=== PATIENT | female | born 1940 | race Caucasian/White ===

== ENCOUNTER → 2017-03-02 | Outpatient (REF) ==
[~2017-03-02] MED LIST: ACETYL-L-CARNITINE PO; ALLEGRA60 MG PO; ALPHA LIPOIC A200 MG PO; ASPI81CT PO; ASPIRIN 32325 MG/TAB PO; ASPIRIN E.C. 8181 MG PO; B COMPLEX; CARDI-OMEGA1000 MG PO; CENTRUM SILVER1 TA1 PO; CLOPIDOGREL PO; COENZYME Q-1010 MG PO; FISH OIL CONC1000 MG PO; FLAXSEED OIL1 CAP PO; FOLIC ACID 40400 MCG PO; GLUCOSAMINE PO; KLONOPIN 0.5MG0.5 MG PO; LEXAPRO10 MG PO; NIACIN500 MG PO; NORVASC 5MG5 MG/TAB PO; NORVASC2.5 MG PO; OMEPRAZOLE DR20 MG PO; RED RICE YEAST PO; RITE AID KRILL500 MG PO; VYTORIN PO; [UNRECOGNIZED DRUG - OTHER]
[2017-03-02 21:58] LABS: THYROID STIMULATING HORMONE 1.04 uIU/mL (0.465-4.680)
== END ==
LOC: ZLAB.WCH 19:25
PROVIDERS: Internal Medicine
DX: Z01.89 Encounter for other specified special examinations (principal)

== ENCOUNTER → 2017-04-14 | Outpatient (CLI) | payer MEDICARE, BC | LOC: MC.RAD 14:20 | DX: Z12.31 Encounter for screening mammogram for malignant neoplasm of breast (principal) ==

== ENCOUNTER → 2017-05-20 | Outpatient (REF) | LOC: ZLAB.WCH 08:45 | DX: Z01.89 Encounter for other specified special examinations (principal) ==

== ENCOUNTER → 2018-03-05 | Outpatient (REF) ==
[2018-03-05 09:41] LABS: THYROID STIMULATING HORMONE 0.934 uIU/mL (0.465-4.680)
== END ==
LOC: ZLAB.WCH 08:41
PROVIDERS: Internal Medicine
DX: Z01.89 Encounter for other specified special examinations (principal)

== ENCOUNTER → 2018-10-08 | Outpatient (CLI) | payer MEDICARE, BC ==
[2018-10-08 10:26] LABS: CHOLESTEROL RISK RATIO 2.6
== END ==
LOC: COL.LAB 09:35
PROVIDERS: Internal Medicine Cardiovascular Disease
DX: E78.5 Hyperlipidemia, unspecified (principal)

== ENCOUNTER → 2018-10-27 | Outpatient (CLI) | payer MEDICARE, BC | LOC: MC.RAD 12:51 | DX: N64.9 Disorder of breast, unspecified (principal) | CPT/HCPCS: G0279 ==

== ENCOUNTER → 2019-02-15 | Outpatient (REF) ==
[2019-02-15 18:57] LABS: THYROID STIMULATING HORMONE 0.834 uIU/mL (0.465-4.680)
== END ==
LOC: ZLAB.WCH 17:37
PROVIDERS: Internal Medicine
DX: Z01.89 Encounter for other specified special examinations (principal)

== ENCOUNTER → 2019-03-29 | Outpatient (CLI) | payer MEDICARE, BC | LOC: MC.RAD 15:44 | DX: Z53.8 Procedure and treatment not carried out for other reasons (principal); N64.89 Other specified disorders of breast ==

== ENCOUNTER 2022-02-21 13:10 | Outpatient (RCR) | payer MEDICARE, BC ==
[2022-02-21] MEDS ORDERED: COREG 3.123.125 MG/T PO (15:14)
[2022-02-21] MEDS ORDERED: ASPIRIN E.C. 8181 MG PO (15:14)
[2022-02-21] MEDS ORDERED: ZYRTEC 10MG10 MG PO (15:15)
[2022-02-21] MEDS ORDERED: PLAVIX 75MG TAB75 MG PO (15:15)
[2022-02-21] MEDS ORDERED: FERROUS SU325 MG/TAB PO (15:16)
[2022-02-21] MEDS ORDERED: NEURONTIN100 MG/CAP PO (15:16)
[2022-02-21] MEDS ORDERED: PROTONIX 40MG T40 MG PO (15:18)
[2022-02-21] MEDS ORDERED: MELATONIN1 MG PO (15:18)
[2022-02-21] MEDS ORDERED: ULTRAM 50MG TAB50 MG PO (15:19)
[2022-02-21] MEDS ORDERED: PRALUENT P75 MG/1 ML SQ (15:19)
[2022-02-21] MEDS ORDERED: ZINC SULFATE 1566 MG PO (15:20)
== END 2022-02-22 | disposition home or self-care (01) ==
LOC: COL.CR
DX: Z48.812 Encounter for surgical aftercare following surgery on the circulatory system (principal); I25.810 Atherosclerosis of coronary artery bypass graft(s) without angina pectoris

== ENCOUNTER 2022-03-21 14:24 | Outpatient (RCR) | payer MEDICARE, BC ==
[~2022-03-21 14:24] MED LIST changes: +COREG 3.123.125 MG/T PO; +FERROUS SU325 MG/TAB PO; +MELATONIN1 MG PO; +NEURONTIN100 MG/CAP PO; +PLAVIX 75MG TAB75 MG PO; +PRALUENT P75 MG/1 ML SQ; +PROTONIX 40MG T40 MG PO; +ULTRAM 50MG TAB50 MG PO; +ZINC SULFATE 1566 MG PO; +ZYRTEC 10MG10 MG PO
== END 2022-03-25 | disposition home or self-care (01) ==
LOC: COL.CR
DX: Z48.812 Encounter for surgical aftercare following surgery on the circulatory system (principal); I25.810 Atherosclerosis of coronary artery bypass graft(s) without angina pectoris

== ENCOUNTER → 2022-03-26 | Outpatient (CLI) | payer MEDICARE, BC ==
[2022-03-26 14:48] LABS: BASO # 0.1 K/mm3 (0.0-0.2); BASO % 0.5 % (0.0-2.0); EOS # 0.4 K/mm3 (0.0-0.7); EOS % 3.5 % (0.0-4.0); GRAN # 7.6 K/mm3 (1.4-6.5); GRAN % 70.5 % (42.2-75.2); HEMATOCRIT 37.6 % (37.0-47.0); HEMOGLOBIN 12.1 g/dl (12.5-16.0); LYMPH # 1.3 K/mm3 (1.2-3.4); LYMPH % 12.3 % (20.0-51.0); MEAN CELL VOLUME 93 fl (80.0-100.0); MEAN CORPUSCULAR HEMOGLOBIN 30 pg (27-31); MEAN CORPUSCULAR HGB CONC 32 g/dl (33.0-37.0); MEAN PLATELET VOLUME 8.5 fl (7.4-10.4); MONO # 1.4 K/mm3 (0.1-0.6); MONO % 12.9 % (1.7-9.3); PLATELET COUNT 192 K/mm3 (130-400); RED BLOOD COUNT 4.04 M/mm3 (4.10-5.30); REDCELL DISTRIBUTION WIDTH-CV 14.5 % (11.5-14.5)
[2022-03-26 15:11] LABS: ALBUMIN 3.5 gm/dL (3.4-4.8); BILIRUBIN,TOTAL 0.4 mg/dL (0.2-1.2); CALCIUM 9.3 mg/dL (8.4-10.2); CREATININE, serum 1.25 mg/dL (0.57-1.11); TOTAL PROTEIN 7.6 gm/dL (6.2-8.1)
== END ==
LOC: COL.LAB 12:57
PROVIDERS: Internal Medicine
DX: K92.1 Melena (principal); I50.9 Heart failure, unspecified

== ENCOUNTER 2022-04-23 14:23 | Outpatient (RCR) | payer MEDICARE, BC | END 2022-04-24 | disposition home or self-care (01) | LOC: COL.CR | DX: I25.810 Atherosclerosis of coronary artery bypass graft(s) without angina pectoris (principal) ==

== ENCOUNTER 2022-05-16 15:01 | Outpatient (RCR) | payer MEDICARE, BC | END 2022-05-19 14:59 | disposition still patient (30) | LOC: COL.CR 15:01 | DX: Z48.812 Encounter for surgical aftercare following surgery on the circulatory system (principal); I25.810 Atherosclerosis of coronary artery bypass graft(s) without angina pectoris ==

== ENCOUNTER → 2022-07-08 | Outpatient (CLI) | payer MEDICARE, BC | LOC: COL.RAD 14:51 | DX: M25.512 Pain in left shoulder (principal) ==

== ENCOUNTER → 2023-02-24 | Outpatient (CLI) | payer MEDICARE, BC | LOC: COL.RAD 14:50 | DX: R91.8 Other nonspecific abnormal finding of lung field (principal); R06.00 Dyspnea, unspecified ==

== ENCOUNTER 2023-02-25 13:21 | Emergency (ER) | payer MEDICARE, BC ==
[~2023-02-25] VITALS: Ht 157.5 cm; Wt 69.1 kg
[2023-02-25 13:29] VITALS: TEMP 97.9
[2023-02-25 15:04] LABS: BASO % 0.6 % (0.0-2.0); EOS # 0.3 K/mm3 (0.0-0.7); EOS % 4.6 % (0.0-4.0); GRAN # 4.5 K/mm3 (1.4-6.5); GRAN % 63.8 % (42.2-75.2); HEMOGLOBIN 12.2 g/dl (12.5-16.0); LYMPH # 1.2 K/mm3 (1.2-3.4); LYMPH % 17.3 % (20.0-51.0); MEAN CELL VOLUME 93 fl (80.0-100.0); MEAN CORPUSCULAR HEMOGLOBIN 32 pg (27-31); MEAN CORPUSCULAR HGB CONC 35 g/dl (33.0-37.0); MEAN PLATELET VOLUME 8.7 fl (7.4-10.4); MONO % 13.3 % (1.7-9.3); PLATELET COUNT 160 K/mm3 (130-400); RED BLOOD COUNT 3.81 M/mm3 (4.10-5.30); REDCELL DISTRIBUTION WIDTH-CV 13.4 % (11.5-14.5)
[2023-02-25 15:07] LABS: HEMATOCRIT 35.4 % (37.0-47.0)
[2023-02-25 15:16] LABS: INR 0.9 (0.8-3.0); PROTHROMBIN TIME 10.7 SECONDS (9.7-12.8)
[2023-02-25 15:24] LABS: ALBUMIN 3.6 gm/dL (3.4-4.8); BILIRUBIN,TOTAL 0.4 mg/dL (0.2-1.2); CALCIUM 9.4 mg/dL (8.4-10.2); CREATININE, serum 1.21 mg/dL (0.57-1.11); POTASSIUM 3.8 mmol/L (3.5-4.5); TOTAL PROTEIN 6.7 gm/dL (6.2-8.1)
[2023-02-25 15:30] LABS: TROPONIN-I 0.011 ng/mL (0.00-0.033)
[2023-02-25 16:35] VITALS: BP 140/74; PULSE 70
== END 2023-02-25 16:35 | disposition home or self-care (01) ==
LOC: COL.ER 13:21
PROVIDERS: Physician Assistant
DX: I26.99 Other pulmonary embolism without acute cor pulmonale (principal); R91.8 Other nonspecific abnormal finding of lung field; Z95.1 Presence of aortocoronary bypass graft; Z79.82 Long term (current) use of aspirin; Z79.02 Long term (current) use of antithrombotics/antiplatelets; Z28.310 Unvaccinated for COVID-19

== ENCOUNTER → 2024-06-16 | Outpatient (CLI) | payer MEDICARE, BC ==
[~2024-06-16] MED LIST changes: +Iohexol 300 - 10 ML VIAL ONE; +Lidocaine PF 2% (20 MG/ML) 2 ML VIAL ONE
== END ==
LOC: MHCPAIN 10:06
DX: M54.16 Radiculopathy, lumbar region (principal); M48.061 Spinal stenosis, lumbar region without neurogenic claudication; M54.50 Low back pain, unspecified
CPT/HCPCS: J1100; Q9967